=== PATIENT | male | born 1980 | race Caucasian/White ===

== ENCOUNTER 2024-04-02 12:29 | Emergency (ER) | payer BC ==
[2024-04-02] MEDS ORDERED: Sodium Chloride 0.9% 2.5 ML Syringe FLUSH PRN (13:30)
[2024-04-02] MEDS ORDERED: Sodium Chloride 0.9% 10 ML Syringe FLUSH PRN (13:30)
[2024-04-02] MEDS: Sodium Chloride 0.9% 1,000 ML IV ONE (14:23)
[2024-04-02] MEDS: Ketorolac 30 MG/ML SDV IVPUSH ONE (14:23)
[2024-04-02 14:34] LABS: BASOPHILS ABSOLUTE AUTO 0.02 K/uL (0.00-0.20); BASOPHILS PERCENT AUTO 0.3 % (0.0-1.0); EOSINOPHILS ABSOLUTE AUTO 0.07 K/uL (0.00-0.45); EOSINOPHILS PERCENT AUTO 1.1 % (0.0-6.0); HEMATOCRIT 40.9 % (42.0-52.0); HEMOGLOBIN 14.2 g/dL (14.0-18.0); LYMPHOCYTES PERCENT AUTO 24.1 % (24.0-44.0); MEAN CORPUSCULAR HEMOGLOBIN 31.1 pg (28.0-32.0); MEAN CORPUSCULAR HGB CONC 34.7 g/dL (32.0-36.0); MEAN CORPUSCULAR VOLUME 89.7 fL (83.0-99.0); MEAN PLATELET VOLUME 9.6 fL (9.4-12.4); MONOCYTES ABSOLUTE AUTO 0.46 K/uL (0.00-0.80); MONOCYTES PERCENT AUTO 6.9 % (0.0-8.0); NEUTROPHILS ABSOLUTE AUTO 4.49 K/uL (1.80-7.70); NEUTROPHILS PERCENT AUTO 67.6 % (41.0-71.0); PLATELET COUNT,PLT 221 K/uL (150-400); RED BLOOD CELL COUNT 4.56 M/uL (4.52-5.90); WHITE BLOOD CELL COUNT,WBC 6.64 K/uL (3.9-11.3)
[2024-04-02 14:41] LABS: INR 1.16 (0.86-1.11)
[2024-04-02 15:04] LABS: A/G RATIO 1.2 (0.9-1.6); ALBUMIN 3.6 g/dL (3.4-5.0); BILIRUBIN TOTAL 0.7 mg/dL (0.2-1.0); CALCIUM 9.1 mg/dL (8.5-10.1); CARBON DIOXIDE,CO2 30.3 mmol/L (21.0-32.0); CREATININE 0.8 mg/dL (0.8-1.3); EST CRCL DRUG DOSING (CG) 123.44 mL/min; MAGNESIUM 2.1 mg/dL (1.8-2.4); POTASSIUM,K 4.2 mmol/L (3.5-5.1); PROTEIN TOTAL,TP 6.5 g/dL (6.4-8.2)
[2024-04-02 15:07] LABS: CORONAVIRUS COVID-19 NAA NEGATIVE (NEGATIVE); INFLUENZA A NAA NEGATIVE (NEGATIVE); INFLUENZA B NAA NEGATIVE (NEGATIVE); RESPIRATORY SYNCYTIAL VIR NAA NEGATIVE (NEGATIVE)
[2024-04-02] MEDS: Iopamidol 755 MG/ML 500 ML Multipack Bottle IVPUSH STA (15:21)
[2024-04-02 16:58] LABS: APPEARANCE,URINE CLEAR; BILIRUBIN,URINE NEGATIVE (NEGATIVE); COLOR,URINE YELLOW; GLUCOSE,URINE NEGATIVE (NEGATIVE); KETONES,URINE NEGATIVE (NEGATIVE); LEUKOCYTE ESTERASE,URINE NEGATIVE (NEGATIVE); NITRITE,URINE NEGATIVE (NEGATIVE); OCCULT BLOOD,URINE NEGATIVE (NEGATIVE); PH,URINE 6.5 (5.0-8.0); PROTEIN,URINE NEGATIVE (NEGATIVE); UROBILINOGEN,URINE 0.2 EU/dL (<2.0)
== END 2024-04-02 18:20 | disposition home or self-care (01) ==
LOC: MW.ED 12:29
DX: R10.13 Epigastric pain (principal); I10 Essential (primary) hypertension; E11.9 Type 2 diabetes mellitus without complications; Z75.8 Other problems related to medical facilities and other health care
CPT/HCPCS: 0241U; 36415; 74177; 80053; 81003; 83690; 83735; 84484; 85025; 85610; 85730; 93005; 96361; 96374; 99284; J1885; J7030; Q9967; 93010

== ENCOUNTER 2024-04-02 23:14 | Emergency (ER) | payer BC ==
[2024-04-02] MEDS ORDERED: Sodium Chloride 0.9% 10 ML Syringe FLUSH PRN (23:15)
[2024-04-02 23:38] LABS: BASOPHILS ABSOLUTE AUTO 0.04 K/uL (0.00-0.20); BASOPHILS PERCENT AUTO 0.6 % (0.0-1.0); EOSINOPHILS ABSOLUTE AUTO 0.11 K/uL (0.00-0.45); EOSINOPHILS PERCENT AUTO 1.6 % (0.0-6.0); HEMATOCRIT 44.7 % (42.0-52.0); HEMOGLOBIN 15.3 g/dL (14.0-18.0); IMMATURE GRAN ABSOLUTE AUTO 0.01 K/uL (0.00-0.05); IMMATURE GRAN PERCENT AUTO 0.1 % (0.0-0.4); LYMPHOCYTES ABSOLUTE AUTO 1.86 K/uL (1.00-4.80); LYMPHOCYTES PERCENT AUTO 27.3 % (24.0-44.0); MEAN CORPUSCULAR HGB CONC 34.2 g/dL (32.0-36.0); MEAN CORPUSCULAR VOLUME 90.7 fL (83.0-99.0); MEAN PLATELET VOLUME 9.4 fL (9.4-12.4); MONOCYTES ABSOLUTE AUTO 0.46 K/uL (0.00-0.80); MONOCYTES PERCENT AUTO 6.7 % (0.0-8.0); NEUTROPHILS ABSOLUTE AUTO 4.34 K/uL (1.80-7.70); NEUTROPHILS PERCENT AUTO 63.7 % (41.0-71.0); PLATELET COUNT,PLT 239 K/uL (150-400); RED BLOOD CELL COUNT 4.93 M/uL (4.52-5.90); WHITE BLOOD CELL COUNT,WBC 6.82 K/uL (3.9-11.3)
[2024-04-03 00:02] LABS: A/G RATIO 1.1 (0.9-1.6); ALBUMIN 3.8 g/dL (3.4-5.0); BILIRUBIN TOTAL 0.6 mg/dL (0.2-1.0); C-REACTIVE PROTEIN 0.06 mg/dL (<0.3); EST CRCL DRUG DOSING (CG) 97.84 mL/min; POTASSIUM,K 4.2 mmol/L (3.5-5.1); PROTEIN TOTAL,TP 7.2 g/dL (6.4-8.2)
[2024-04-03] MEDS: droPERidol 5 MG/2 ML SDV IM ONE (00:23)
[2024-04-03] MEDS: Ondansetron 4 MG Tab.DIS PO ONE (00:23)
== END 2024-04-03 00:33 | disposition home or self-care (01) ==
LOC: MW.ED 23:14
DX: R10.84 Generalized abdominal pain (principal); R11.2 Nausea with vomiting, unspecified; I10 Essential (primary) hypertension; E11.9 Type 2 diabetes mellitus without complications
CPT/HCPCS: 36415; 80053; 83605; 83690; 85025; 85652; 86140; 96372; 99284; A9270; J1790; 99283

== ENCOUNTER 2024-04-27 10:18 | Day surgery (SDC) | payer BC ==
[2024-04-27] MEDS ORDERED: propofoL 500 MG/50 ML 50 ML ONE (12:05)
[2024-04-27] MEDS: Lactated Ringers 1,000 ML IV SCH (12:16)
[2024-04-27] MEDS ORDERED: Lidocaine 2% 5 ML SDV ONE (12:37)
[2024-04-27] MEDS ORDERED: Glycopyrrolate 0.2 MG/ML SDV ONE (13:03)
[2024-04-27] MEDS ORDERED: Propofol 200 MG/20 ML SDV ONE (13:14)
== END 2024-04-27 14:13 | disposition home or self-care (01) ==
LOC: MW.SDS 10:18
PROVIDERS: ATTEND Surgery
DX: D12.2 Benign neoplasm of ascending colon (principal); K20.90 Esophagitis, unspecified without bleeding; K22.70 Barrett's esophagus without dysplasia; K29.50 Unspecified chronic gastritis without bleeding; I10 Essential (primary) hypertension; E11.9 Type 2 diabetes mellitus without complications; E78.00 Pure hypercholesterolemia, unspecified; Z87.891 Personal history of nicotine dependence; Z79.899 Other long term (current) drug therapy
CPT/HCPCS: 43239; 45380; J1596; J2704; J7120; J3490

== ENCOUNTER 2024-05-02 08:06 | Day surgery (SDC) | payer BC ==
[~2024-05-02 08:06] MED LIST: Acetaminophen 1,000 MG in Premix Bag 1 BAG IV SCH; ceFAZolin 2 GM in Sodium Chloride 0.9% 50 ML IV ONE
[2024-05-02] MEDS ORDERED: fentaNYL 50 MCG/ML SDV IVPUSH PRN (08:43)
[2024-05-02] MEDS ORDERED: Phenylephrine HCl In 0.9% NaCl 1 MG/10 ML Syringe IVPUSH PRN (08:43)
[2024-05-02] MEDS ORDERED: HYDROmorphone 1 MG/ML Syringe IVPUSH PRN (08:43)
[2024-05-02] MEDS ORDERED: Ondansetron 4 MG/2 ML SDV IVPUSH PRN (08:43)
[2024-05-02] MEDS ORDERED: Metoclopramide 10 MG/2 ML SDV IVPUSH PRN (08:43)
[2024-05-02] MEDS ORDERED: Albuterol 0.083% 2.5 MG/3 ML Neb Soln NEB PRN (08:43)
[2024-05-02] MEDS ORDERED: Naloxone 0.4 MG/ML SDV IVPUSH PRN (08:43)
[2024-05-02] MEDS ORDERED: Morphine 2 MG/ML SYRINGE IVPUSH PRN (08:43)
[2024-05-02] MEDS ORDERED: Ropivacaine 0.5% 5 MG/ML 30 ML SDV ONE (08:47)
[2024-05-02] MEDS ORDERED: Bupivacaine 0.25% 30 ML SDV ONE ×2 (08:47→09:22)
[2024-05-02] MEDS ORDERED: Morphine 10 MG/ML SDV ONE (08:48)
[2024-05-02] MEDS ORDERED: propofoL 500 MG/50 ML 50 ML ONE (08:52)
[2024-05-02] MEDS: Lactated Ringers 1,000 ML IV SCH (09:04)
[2024-05-02] MEDS: Pregabalin 75 MG Cap PO SCH (09:06)
[2024-05-02] MEDS: Scopalamine 1mg/3day Transdermal Patch TOP ONE (09:10)
[2024-05-02] MEDS ORDERED: fentaNYL 100 MCG/2 ML SDV ONE (09:11)
[2024-05-02] MEDS ORDERED: Rocuronium Bromide 50 MG/5 ML Syringe ONE ×2 (09:11→11:17)
[2024-05-02] MEDS ORDERED: Ondansetron 4 MG/2 ML SDV ONE (09:11)
[2024-05-02] MEDS ORDERED: Lidocaine 1% 5 ML VIAL ONE (09:11)
[2024-05-02] MEDS ORDERED: Propofol 200 MG/20 ML SDV ONE ×2 (09:12→11:31)
[2024-05-02] MEDS ORDERED: Midazolam 1 MG/ML 2 ML SDV ONE (10:03)
[2024-05-02] MEDS ORDERED: Lidocaine 2% 11 ML Jelly Filled Syringe ONE (10:20)
[2024-05-02] MEDS ORDERED: ceFAZolin 2 GM Vial ONE (10:26)
[2024-05-02] MEDS ORDERED: Sugammadex Sodium 200 MG/2 ML VIAL IV ONE (10:37)
[2024-05-02] MEDS ORDERED: Ketorolac 30 MG/ML SDV ONE (10:37)
[2024-05-02] MEDS ORDERED: ePHEDrine 50 MG/ML SDV ONE (10:51)
== END 2024-05-02 13:55 | disposition home or self-care (01) ==
LOC: MW.SDS 08:06
PROVIDERS: ATTEND Surgery
DX: K80.64 Calculus of gallbladder and bile duct with chronic cholecystitis without obstruction (principal); I10 Essential (primary) hypertension; E11.9 Type 2 diabetes mellitus without complications; E78.00 Pure hypercholesterolemia, unspecified; Z87.891 Personal history of nicotine dependence; Z79.899 Other long term (current) drug therapy
CPT/HCPCS: 47562; A9270; J0131; J0665; J0690; J1885; J2250; J2272; J2405; J2704; J2795; J3010; J3490; J7120; 00790; 64488